=== PATIENT | female | born 1965 | race Caucasian/White ===

== ENCOUNTER → 2016-07-15 | Outpatient (CLI) | payer BC ==
--- NOTE | 2016-07-15 15:18 | EKG ---
[address] [address] Measurements Intervals [place] Rate: 67 P: 60 GA: 147 QRS: 66 QRSD: 79 T: 63 QT: 421 QTc: 437 Interpretive Statements SINUS RHYTHM No previous ECG available for comparison Electronically Signed On 07-15-16 15:51:53 MST by Quinten Mcqueen [email or web address]
[2016-07-15 17:13] LABS: BASOPHILS # (AUTO) 0.05 10*3/UL; BASOPHILS % (AUTO) 0.7 % (0-1); EOSINOPHILS % (AUTO) 1.4 % (0-8); HEMATOCRIT 39.4 % (37.0-47.0); HEMOGLOBIN 13.2 g/dL (12.0-16.0); IMM GRAN % (AUTO) 0.1 % (0-5); IMM GRAN# (AUTO) 0.01 10*3/UL; LYMPHOCYTES # (AUTO) 0.93 10*3/uL; LYMPHOCYTES % (AUTO) 13.2 % (10-50); MEAN CORPUSCULAR HEMOGLOBIN 31.8 PG (27-31); MEAN CORPUSCULAR HGB CONC 33.5 g/dL (33-37); MEAN PLATELET VOLUME 10.8 FL (7.4-12.2); MONOCYTES # (AUTO) 0.25 10*3/UL (0.3-0.8); MONOCYTES % (AUTO) 3.5 % (5-15); NEUTROPHILS # (AUTO) 5.72 10*3/UL; NEUTROPHILS % (AUTO) 81.1 % (50-80); RDW COEFFICIENT OF VARIATION 13.8 % (11.5-14.5); RED BLOOD COUNT 4.15 10^6/uL (4.20-5.40); WHITE BLOOD COUNT 7.06 10^3/uL (4.8-10.8)
[2016-07-15 17:14] LABS: PLATELET MORPHOLOGY COMMENT NORMAL MORPHOLOGY (NORM)
[2016-07-15 17:39] LABS: BILIRUBIN,TOTAL 0.4 mg/dL (0.3-1.2); BUN/CREATININE RATIO 29.23 (6-20); CALCIUM 9.8 mg/dL (8.7-10.7); CREATININE 1.3 mg/dL (0.50-1.20); LDL CHOLESTEROL,CALCULATED 127.6 mg/dL; POTASSIUM 4.4 meq/L (3.8-5.2); TOTAL PROTEIN 7.4 g/dL (6.1-8.0)
== END ==
LOC: MOB LAB 15:03
DX: Z01.812 Encounter for preprocedural laboratory examination (principal); Z01.810 Encounter for preprocedural cardiovascular examination; S83.511A Sprain of anterior cruciate ligament of right knee, initial encounter; T86.10 Unspecified complication of kidney transplant; E78.5 Hyperlipidemia, unspecified
CPT/HCPCS: 80053; 80061; 85025; 93005; 93010